=== PATIENT | female | born 1940 | race Caucasian/White ===

== ENCOUNTER → 2016-12-22 | Outpatient (CLI) | payer BC ==
[~2016-12-22] MED LIST: ALEN70TA30 PO; ASPI325T32 PO; DOCU-144 PO; HYDR-905 PO; HYDR50TA3 PO; LYRI25 PO; PANT40TA4 PO; TRAM50TA2 PO
== END | disposition home or self-care (01) ==
LOC: HKI 10:07
PROVIDERS: ATTEND Orthopaedic Surgery
DX: M17.12 Unilateral primary osteoarthritis, left knee (principal); Z47.1 Aftercare following joint replacement surgery; Z96.651 Presence of right artificial knee joint
CPT/HCPCS: G0463

== ENCOUNTER 2017-02-09 12:44 | Day surgery (SDC) | payer BC ==
[~2017-02-09] VITALS: Ht 144.8 cm; Wt 70.5 kg
[2017-02-09 14:48] VITALS: Ht 144.8 cm; Wt 70.5 kg
[2017-02-09 15:18] VITALS: BP 159/84; PULSE 69; RESP 20
[2017-02-09] MEDS ORDERED: CEFAZOLIN 1 GM/50 ML (PMX) 50 ML IVPB ONE (15:44)
[2017-02-09] MEDS ORDERED: LIDOCAINE 4% SOLUTION 50 ML BTL ONE (15:54)
[2017-02-09] MEDS ORDERED: MIDAZOLAM 1 MG/ML 2 ML INJ ONE (16:32)
[2017-02-09] MEDS ORDERED: FENTAnyl 50 MCG/ML VIAL ONE (16:32)
[2017-02-09 16:40] VITALS: BP 134/60; PULSE 58; RESP 16
--- NOTE | 2017-02-09 16:49 | GILP ---
DATE OF PROCEDURE: 02/09/2017 PREOPERATIVE DIAGNOSIS: Dysphagia, reflux symptoms, abdominal pain. PROCEDURE DONE: Esophagogastroduodenoscopy and biopsy random of the stomach and GE junctional nodul ar area at 39 cm. POSTOPERATIVE DIAGNOSIS: 1. Nodularity at the gastroesophageal junction. 2. Dilated esophagus. 3. Small hiatus hernia. 4. Mild gastritis. DESCRIPTION OF PROCEDURE: The patient was put in left lateral decubitus after obtaining informed co nsent. Posterior pharynx anesthetized with 4% Xylocaine gargle and Ancef 1 gram was given IV becaus e of her knee replacement. I gave her 1.5 mg IV Versed and 25 mcg of fentanyl. Then I advanced an Olympus video upper endoscop e in the esophagus, stomach and duodenum. Esophagus is dilated with some fluid. This was suctioned off and no peristalsis is noted. At the GE junction there was nodularity. This was photographed a nd later biopsied. Small sliding hiatus hernia was noted in the stomach, gastritis noted in the ant rum, so random biopsy done for H. pylori. Duodenal bulb and first and second part normal. Scope wa s withdrawn after biopsies. The patient had no complication. PLAN: Will be to continue PPI. Await for biopsy report, follow up as outpatient. If pain continue s, consider CT scan of the abdomen. Dictated By: CHELA MANZO Conf#: [id number] DID#: [id number]
== END 2017-02-09 16:50 | disposition home or self-care (01) ==
LOC: GIL 12:44
PROVIDERS: ATTEND Internal Medicine
DX: K29.30 Chronic superficial gastritis without bleeding (principal); K22.70 Barrett's esophagus without dysplasia; K44.9 Diaphragmatic hernia without obstruction or gangrene
CPT/HCPCS: 43239; 88305; 88312; 88313; J0690; J2250; J3010; Z7610

== ENCOUNTER 2017-02-19 13:13 | Inpatient (IN) | payer BC ==
[~2017-02-19] VITALS: Ht 144.8 cm; Wt 70.6 kg
[2017-03-01] VITALS (22 sets, daily range): BP systolic 114–150; BP diastolic 59–76; PULSE 62–81; RESP 11–20; Ht 144.8 cm; Wt 70.6 kg
[2017-03-01] MEDS ORDERED: CEFAZOLIN 2GM/50 ML (PMX) 50 ML X1 BEFORE INCISION IVPB ONE (08:00)
[2017-03-01] MEDS ORDERED: TRANEXAMIC ACID 770 MG in SOD CHLORIDE 0.9% 100 ML IVPB ONE (08:00)
[2017-03-01] MEDS ORDERED: TRANEXAMIC ACID 770 MG in SOD CHLORIDE 0.9% 92.3 ML IV ONE (08:00)
[2017-03-01] MEDS ORDERED: traMADOL 50 MG TAB X 1 DOSE PO ONE (08:00)
[2017-03-01] MEDS ORDERED: LACTATED RINGER'S 1,000 ML IV SCH (08:00)
[2017-03-01] MEDS ORDERED: oxyCODONE (CR) 10 MG TAB [oxyCONTIN] X1 DOSE PO ONE (08:00)
[2017-03-01] MEDS ORDERED: CELECOXIB 400 MG PO X1 DOSE PO ONE (08:00)
[2017-03-01] MEDS ORDERED: PREGABALIN 300 MG PO X1 PO ONE (08:00)
[2017-03-01] MEDS ORDERED: PAIN COCKTAIL-CEFUROXIME IRR ONE ×7 (08:00)
[2017-03-01] MEDS ORDERED: BUPIVACAINE LIPOSOME/PF 266 MG/20 ML VIAL INFIL ONE (08:00)
[2017-03-01] MEDS ORDERED: CIPR500T4 PO (08:46)
--- NOTE | 2017-03-01 09:54 | HPN ---
Date/Time of Note Date/Time of Note DATE: 03/01/17 TIME: 09:53 Interval H&P Admission Note Pt. seen H&P reviewed: No system changes No change from H&P on 02/21/17 by PAL David MD Mar 01, 2017 09:54
[2017-03-01] MEDS ORDERED: POLYMYXIN B 500000 UNIT INJ ONE (10:04)
[2017-03-01] MEDS ORDERED: VANCOMYCIN 1 GM INJ ONE (10:04)
[2017-03-01] MEDS ORDERED: FENTAnyl 50 MCG/ML VIAL ONE (10:20)
[2017-03-01] MEDS ORDERED: LIDOCAINE 2% (SDV) 5 ML INJ ONE (10:20)
[2017-03-01] MEDS ORDERED: PROPOFOL 100 ML ONE (10:20)
[2017-03-01] MEDS ORDERED: BACITRACIN 50000 UNITS INJ ONE (11:18)
[2017-03-01] MEDS ORDERED: METOCLOPRAMIDE 10 MG INJ ONE (11:49)
[2017-03-01] MEDS ORDERED: DEXAMETHASONE 4 MG/ML 1 ML INJ ONE (11:49)
[2017-03-01] MEDS ORDERED: ONDANSETRON 4 MG INJ ONE (11:49)
[2017-03-01] MEDS ORDERED: ROCURONIUM 50 MG INJ ONE (11:49)
[2017-03-01] MEDS ORDERED: SUCCINYLCHOLINE CHLORIDE 100 MG/5 ML SYG IV ONE (11:49)
[2017-03-01] MEDS ORDERED: FAMOTIDINE 20 MG INJ ONE (11:50)
[2017-03-01] MEDS ORDERED: CEFAZOLIN 1 GM INJ ONE ×2 (11:54)
[2017-03-01] MEDS ORDERED: EPHEDrine SULFATE 50 MG/5 ML SYG ONE ×2 (11:54→12:48)
[2017-03-01] MEDS: traMADol 50 MG TAB PO SCH ×2 (12:00→17:41)
[2017-03-01] MEDS ORDERED: DIPHENHYDRAMINE 50 MG INJ IV PRN (12:30)
[2017-03-01] MEDS ORDERED: LABETALOL HCL 20MG INJ IV PRN (12:30)
[2017-03-01] MEDS ORDERED: ONDANSETRON 4 MG INJ IV PRN ×2 (12:30→13:30)
[2017-03-01] MEDS ORDERED: hydrALAzine 20 MG INJ IV PRN (12:30)
[2017-03-01] MEDS ORDERED: HYDROmorphONE (0.2 MG/ML) 10ML SYG IV PRN (12:30)
[2017-03-01] MEDS ORDERED: FENTAnyl 50 MCG/ML VIAL IV PRN (12:30)
[2017-03-01] MEDS ORDERED: NEOSTIGMINE 3 MG/3 ML SYRINGE ONE (12:46)
[2017-03-01] MEDS ORDERED: GLYCOPYRROLATE 0.4 MG INJ ONE (12:46)
[2017-03-01] MEDS: LACTATED RINGER'S 1,000 ML IV SCH ×2 (13:26→20:20)
[2017-03-01] MEDS ORDERED: MAGNESIUM HYDROXIDE 30ML CUP PO PRN (13:30)
[2017-03-01] MEDS ORDERED: NA PHOSPHATE/BIPHOS 133 ML ENEMA PR PRN (13:30)
[2017-03-01] MEDS ORDERED: NACL 0.9% 3 ML SYG IV SCH (13:30)
[2017-03-01] MEDS ORDERED: ASPIRIN (EC) 325 MG TAB PO ONE (13:30)
[2017-03-01] MEDS ORDERED: BISACODYL 10 MG SUPP PR PRN (13:30)
[2017-03-01] MEDS ORDERED: HYDROmorphONE 1 MG/ML SYG IV PRN (13:30)
[2017-03-01] MEDS ORDERED: DIPHENHYDRAMINE 25 MG CAP PO PRN (13:30)
--- NOTE | 2017-03-01 13:31 | RADRPT ---
PROCEDURE: Left knee x-ray. CLINICAL INDICATION: Intraoperative localization for knee replacement procedure. TECHNIQUE: Two images were obtained intraoperatively during the intraoperative procedure. COMPARISON: None available FINDINGS: 2 images were obtained intraoperatively for localization during the procedure. The procedure was p erformed by Dr. Vasquez; 18 seconds of intraoperative fluoroscopy was used. Surgical hardware is seen in place. No fracture is identified. IMPRESSION: Intraoperative images and fluoroscopy used during the procedure Surgical hardware identified. RPTAT:HGDB .Ranjit Burt MD, Date Time Electronically viewed and signed by .Ranjit Burt MD, on 03/01/2017 13:31 .B/
--- NOTE | 2017-03-01 13:34 | OPR ---
Date/Time of Note Date/Time of Note DATE: 03/01/17 TIME: 13:32 Operative Report Free Text/Dictation [id number] Procedure Date: Mar 01, 2017 Preoperative Diagnosis Left Knee OA Postoperative Diagnosis Same Operation Performed Left TKA Surgeon: PAL WORTHINGTON MD assistant spa director: NELSON HDZ PA-C Anesthesia: general, spinal Anesthesiologist: MP SHEPHERD MD Tourniquet Time: 91 minutes Estimated Blood Loss: 10 - 50 ml's Specimens Bone and soft tissue Tubes/Drains Hemovac x 1 Complications: None Complications None Pt Condition Post Procedure: stable Disposition: PACU PAL WORTHINGTON MD Mar 01, 2017 13:33
--- NOTE | 2017-03-01 13:39 | PN ---
Date/Time of Note Date/Time of Note DATE: 03/01/17 TIME: 13:36 Assessment/Plan Assessment/Plan Assessment/Plan Stable in PACU, s/p left TKA -continue antibiotics -pain meds as needed -ASA/SCDs for DVT prophylaxis -OOB with PT -check AM labs -d/c [place] in AM -monitor drain XR of the left knee is pending at this time Subjective 24 Hr Interval Summary Stable in PACU. Moving surgical extremity. Drowsy from anesthesia. Denies pain. Exam/Review of Systems Vital Signs Vitals Vital Signs Date Time Temp Pulse Resp B/P Pulse Ox O2 Delivery O2 Flow Rate FiO2 03/01/17 13:34 98.3 Exam Free Text/Dictation Hemovac: minimal Dressing dry Incision clean, dry, and intact without redness or drainage Thigh soft 5/5 Quadriceps, Tibialis Anterior, EHL, Gastroc, Soleus, Peroneals Normal sensation Palpable DT/PT, CR <2 sec No distal edema NELSON HDZ PA-C Mar 01, 2017 13:38
[2017-03-01] MEDS ORDERED: EXPAREL NOTE (BUPIVICAINE LIPOSOMAL) XX SCH (14:00)
--- NOTE | 2017-03-01 14:05 | OPR ---
DATE OF OPERATION: 03/01/2017 PREOPERATIVE DIAGNOSIS: Left knee osteoarthritis. POSTOPERATIVE DIAGNOSIS: Left knee osteoarthritis. OPERATION PERFORMED: Left total knee arthroplasty. SURGEON: Pal Vasquez MD INTERPRETATIVE DANCER: BEN Thomson COMPONENTS USED: DePuy Attune size 4 narrow femoral component, size 3 tibial baseplate, 14 mm polyethylene insert, and a 32 patellar button. ANESTHESIA: Spinal plus general endotracheal intubation, plus periarticular injection. ANESTHESIOLOGIST: Gregoria Jain MD TOURNIQUET TIME: 91 minutes. ESTIMATED BLOOD LOSS: 50 mL. INTRAVENOUS FLUIDS: Two liters crystalloid. SPECIMENS: Bone and soft tissue. DRAINS: Hemovac x1. COMPLICATIONS: None. DISPOSITION: The patient tolerated the procedure well and was taken to the recovery room in stable condition. INDICATIONS: The patient is a 76-year-old woman who has had progressive worsening pain in the left knee with radiographic evidence of severe osteoarthritis. She has failed nonsurgical means of treatment to control her pain including activity modifications, pain medications and ambulatory assist devices. Despite these measures, she has had worsening pain and I felt she would benefit from a total knee arthroplasty. The risks, benefits, and alternatives of the procedure were explained in detail to the patient. I explained the risks of the surgery to include but not be limited to, bleeding and possible need for blood transfusion; infection; pain; stiffness; neurovascular injury with possible numbness, weakness, and/or paralysis anywhere from the knee down to the toes; fracture; instability; dislocation; wear and/or loosening of the prosthesis and possible need for future revision; blood clots; pulmonary embolism; and anesthetic complications such as heart attack, stroke, GI bleed, pneumonia, and/or . Ample time was allowed for the patient to ask questions, all of which were addressed and answered. The patient understood the risks involved and wished to proceed. Informed consent was signed prior to the procedure. PROCEDURE: The patient's left knee was initialed with a marking pen in the preoperative area to identify the correct operative site. The patient was brought to the operating room and transferred from the [facility] to the operating table where a spinal anesthetic was administered. The patient was then anesthetized and intubated. A Frazier catheter was placed. A timeout was performed to confirm that the left leg was the correct operative site. The patient was given 2 g of Ancef within one hour prior to the procedure. A tourniquet was placed on the operative proximal thigh. The operative knee and lower extremity were prepped and draped in the usual sterile fashion. The operative lower extremity was elevated and exsanguinated with an Esmarch tourniquet. The proximal thigh tourniquet was inflated to 300 mmHg. The knee was flexed. A midline incision was made and carried down through the subcutaneous tissue and fat with sharp dissection. Limited medial and lateral flaps were raised. A median parapatellar approach was performed. Synovial fluid was normal in color and consistency. The patella was everted and the knee flexed. There were severe tricompartmental osteoarthritic changes noted. A medial release was performed at the joint line to the midcoronal plane. The ACL and PCL and remnants of the menisci were excised. The OrthAlign navigation device was then pinned into place on the distal femur and set to 0 degrees of varus/valgus and 3 degrees of flexion. The distal cutting block was pinned into place and the oscillating saw was used to make the cut. The tibia was subluxed anteriorly. The tibial OrthAlign navigation device was then pinned into place such that the proximal portion of the guide was centered over the junction of the medial and middle third of the tibial tubercle with the proximal probe placed at the posterior aspect of the ACL footprint. The guide was then set to 0 degrees varus/valgus and 3 degrees of posterior slope. The cutting block was then pinned into place and the oscillating saw was used to make the cut. The tibia was sized. The extension gap was checked and accommodated a 14 mm spacer block with the knee in full extension. There was no varus or valgus instability. At this point, the femur was sized with the posterior referencing guide. Two holes were drilled in 3 degrees of external rotation. The two holes were in line with the transepicondylar axis, perpendicular to Nephi's line, and in line with the tibial cutoff jig brought up with the knee flexed 90 degrees and tensed with 2 lamina spreaders, suggesting the femoral rotation was correct. The four-in-one cutting block was pinned into place. The anterior and posterior cuts and chamfer cuts were made with the oscillating saw. The flexion gap was checked and accommodated the 14 mm spacer block at 90 degrees. There was no varus or valgus instability, suggesting the flexion and extension gaps were now equal. The central box was cut out on the femur. The tibia was drilled and punched in proper rotation. Trial components were placed into position with a trial insert. The patella was cut from 21 mm down to 13 mm and sized. Three holes were drilled and the trial button placed in position. With all the trials now in place, the knee was taken through range of motion and came to full extension as evidenced by the fact that with the foot on my abdomen and axial loading, there was no tendency for the knee to flex. The knee was able to be flexed to 125 degrees with good patellar tracking with no lateral tilt or subluxation. At this point, I was satisfied with the overall range of motion, stability, and patellar tracking. The trials were removed. The real components were opened. Two bags of cement were mixed, one with and one without premixed antibiotic. The knee was irrigated with antibiotic saline and sucked dry. Once the cement was in a doughy stage, the real components were cemented into place. The knee was held in full extension, and the patellar component was held with a patellar clamp. All excess cement was removed with curettes. As the cement was hardening, the synovial/capsular layer was infiltrated with a mixture of 150 mg of 0.5% bupivacaine, 8 mg of Duramorph, 300 mcg of epinephrine, 30 mg of Toradol, 100 mcg of clonidine, 750 mg of cefuroxime and 86 mL of normal saline, followed by an injection of 266 mg of liposomal bupivacaine. A Hemovac drain was placed in the deep portion of the wound and brought out the anterolateral thigh. Once the cement was completely hardened, the trial liner was removed, and the real insert was opened. The tourniquet was let down, and there was good hemostasis. The knee was then irrigated with a mixture of Betadine/saline and then antibiotic saline with pulsatile lavage. The real insert was impacted into the tibia and reduced onto to the femur. The arthrotomy was closed with a few interrupted #1 Ethibond in a figure-of- eight fashion, and then closed in a watertight fashion with a running #2 Stratafix suture. Knee flexion was checked against gravity and came to 125 degrees. The subcutaneous layer was irrigated and closed with 2-0 Stratafix, and then 3-0 Vicryl and then luis on the skin. The wound was covered with an occlusive dressing, and secured with cast padding and a bias dressing. The drain was secured with 3-0 nylon. The sponge and needle counts were correct at the end of the case. The patient was then awakened, extubated, and taken to the recovery room in stable condition. Dictated By: PAL WORKMAN/DINORAH Conf#: [id number] DID#: [id number] MTDD
[2017-03-01] MEDS: CEFAZOLIN 2 GM/50 ML (PMX) 50 ML IVPB SCH (14:20)
[2017-03-01] MEDS: ALENDRONATE 70 MG XX SCH ×2 (14:30→22:30)
[2017-03-01] MEDS: [UNRECOGNIZED DRUG - OTHER] XX SCH ×2 (14:30→22:30)
[2017-03-01 14:50] LABS: CALCIUM 8.1 mg/dl (8.4-10.2); CREATININE 0.87 mg/dl (0.44-1.00)
--- NOTE | 2017-03-01 14:54 | RADRPT ---
PROCEDURE: XR Knee. CLINICAL INDICATION: Status post knee replacement TECHNIQUE: AP and lateral view of the left knee were obtained. The images reviewed on a PACS work station. COMPARISON: September 06, 2016 FINDINGS: Complete left knee replacement is identified. Prosthetic components are in appropriate position and alignment. No fractures or destructive lesions are observed. Surgical drain is seen in the knee. Soft tissue air is procedural in nature. IMPRESSION: Status post left knee replacement. Prosthetic components are in appropriate position and alignment. RPTAT: AA .Jonnie Victor MD, MD Date Time Electronically viewed and signed by .Jonnie Victor MD, MD on 03/01/2017 14:54 .P/
[2017-03-01 14:59] LABS: POTASSIUM 2.9 mmol/L (3.5-5.1)
[2017-03-01 15:12] LABS: ADD UMIC YES; URINE BILIRUBIN (Dip) NEGATIVE (NEGATIVE); URINE BLOOD (Dip) TRACE (NEGATIVE); URINE COLOR LT. YELLOW (YELLOW); URINE GLUCOSE (Dip) NEGATIVE (NEGATIVE); URINE KETONES (Dip) NEGATIVE (NEGATIVE); URINE LEUKOCYTE ESTERASE (Dip) NEGATIVE (NEGATIVE); URINE NITRITE (Dip) NEGATIVE (NEGATIVE); URINE TOTAL PROTEIN (Dip) NEGATIVE (NEGATIVE); URINE UROBILINOGEN (Dip) 0.2 E.U./dL (0.1-1.0)
[2017-03-01 15:28] LABS: SQUAMOUS EPITHELIAL CELL,UR RARE; URINE RBCS 0-2 /HPF (0)
[2017-03-01] MEDS ORDERED: TRANEXAMIC ACID 710 MG in SOD CHLORIDE 0.9% 100 ML IVPB ONE ×2 (16:30→19:30)
[2017-03-01] MEDS ORDERED: POTASSIUM CHLORIDE 250 ML IVPB ONE (17:00)
[2017-03-01 17:02] LABS: HEMATOCRIT 35.2 % (37.0-47.0); HEMOGLOBIN 11.3 g/dl (12.0-16.0)
--- NOTE | 2017-03-01 17:29 | PDOCDIS ---
Discharge Instructions DIAGNOSIS Discharge Diagnosis: s/p left TKA CONDITION Patient Condition: Good HOME CARE INSTRUCTIONS: Diet Instructions: Regular ACTIVITY: Activity Restrictions: Slowly Increase Activity Rest between Activity Avoid heavy lifting Do not operate Machinery Do not operate Power Tool Avoid Heavy Housework Keep Limb Elevated FOLLOW UP/APPOINTMENTS Appointments follow up in the office on 03/12/17 OTHER ORDERS: Other Orders: S/P TKA Physical Therapy: Three times per week at home x 2 weeks Daily in Rehab/SNF WB STATUS: WBAT 1. Strengthening exercises for both upper and un-operated lower extremities. 2. Gait training with front wheeled walker 3. Active range of motion exercises to operative knee. 4. When not working on knee range of motion exercises, distal towel roll under operative ankle/distal calf to promote full extension. 5. DO NOT PUT ANYTHING BEHIND OPERATIVE KNEE!!! 6. Quadriceps and hamstring strengthening. 7. May switch to cane in contra lateral hand 6 weeks after surgery. 8. Physical Therapy can open case if nursing is not available. 9. Use Ice Machine as instructed from date of surgery while at rest 3X/day. 10. Patient requires mobile SCDs to reduce risk of developing DVT following TKA. Patient will use the mobile SCDs for 30 days postoperatively. Bathing assistance by home health aide twice weekly if Medicare patient. Occupational Therapy: Evaluation for assistive devices and ADL training. Wound Care: Keep incision dry & covered with Tegaderm until first visit with Dr. Vasquez Anticoagulation Orders: Enteric Coated Aspirin 325 mg po bid x 6 weeks from date of surgery Follow-up:Call for an appointment with Dr. Vasquez in 1 week after discharged from hospital at DME Orders: JONA, 3-in-1 Commode, Polar ice machine, Mobile SCDs NELSON HDZ PA-C Mar 01, 2017 17:29
[2017-03-01] MEDS ORDERED: HYDR-905 PO (17:31)
[2017-03-01] MEDS ORDERED: TRAM50TA2 PO (17:31)
[2017-03-01] MEDS ORDERED: GABA300C PO (17:31)
[2017-03-01] MEDS ORDERED: PANT40TA4 PO (17:31)
[2017-03-01] MEDS: PANTOPRAZOLE (EC) 40 MG TAB PO SCH (17:41)
--- NOTE | 2017-03-01 19:07 | CONS ---
DATE OF ADMISSION: 03/01/2017 DATE OF CONSULTATION: 03/01/2017 HISTORY OF PRESENT ILLNESS: A 76-year-old female was brought in because of left knee pain status post left total knee replacement earlier today. Again, this is a 76-year-old female, past history of right total knee replacement in the past, hypertension, severe osteoarthritis who was brought in for elective left total knee replacement secondary to arthritis. She had apparently been having progressive worsening of knee pain. The patient did have a right total knee replacement performed in 10/2016 at this facility as well. Presently, she is sleeping in a 4th floor med/surg room, so full review of systems could not be obtained at this time. PAST MEDICAL HISTORY: As stated above. ALLERGIES: NO KNOWN DRUG ALLERGIES. HOME MEDICINES: 1. Cipro 500 mg b.i.d. 2. Aspirin 325 mg b.i.d. 3. Hydrochlorothiazide 50 mg daily. 4. Fosamax 70 mg weekly. PAST SURGICAL HISTORY: Bowel resection surgery in the past, a right total knee replacement 10/2016 and again today's left total knee replacement as well. SOCIAL HISTORY: Negative for smoking, drinking, IV drug abuse. FAMILY HISTORY: Noncontributory. PHYSICAL EXAMINATION: VITAL SIGNS: Afebrile, pulse 68 to 76, respirations 12 to 20, blood pressure is 119/65, saturating at 96% on room air. GENERAL: The patient is lying in bed sleeping. Daughter is at the bedside. No acute distress. HEENT: Pupils equal, round, reactive to light. Extraocular muscles are intact. NECK: Supple. No thyromegaly. LUNGS: Clear to auscultation bilaterally. CARDIOVASCULAR: S1, S2 heard. No rubs, gallops. ABDOMEN: Soft, nontender, nondistended. Normal bowel sounds. No rebound, guarding. MUSCULOSKELETAL: Decreased range of motion, left lower extremity. NEUROLOGIC: No focal deficits. LABORATORIES: Hemoglobin today 11.3, hematocrit 35.2. Sodium 138, potassium 2.9, chloride 103, CO2 29, BUN of 19, creatinine 0.87, glucose of 138. ASSESSMENT AND PLAN: An 76-year-old female status post left total knee replacement secondary to arthritis, surgery occurred today. 1. Status post left total knee replacement. Continue pain control medications and physical therapy per orthopedic recommendations. 2. Low potassium. Replete. 3. Hypertension. Blood pressure stable. Continue current medications. 4. Gastrointestinal prophylaxis. She is on PPI. 5. Deep venous thrombosis prophylaxis. She is on aspirin, high dose. We will continue to follow along with you. Dictated By: OTONIEL DOYLE Conf#: [id number] DID#: [id number] MTDD
[2017-03-01] MEDS: PREGABALIN 50 MG CAP PO SCH (20:19)
[2017-03-01] MEDS: CIPROFLOXACIN 500 MG TAB PO SCH (20:19)
[2017-03-01] MEDS: DOCUSATE SODIUM 100 MG CAP PO SCH (20:19)
[2017-03-02] MEDS: CEFAZOLIN 2 GM/50 ML (PMX) 50 ML IVPB SCH ×2 (00:14→07:16)
[2017-03-02 00:19] VITALS: BP 126/57; PULSE 65; RESP 16
[2017-03-02] MEDS: LACTATED RINGER'S 1,000 ML IV SCH ×3 (05:14→21:26)
[2017-03-02] MEDS: ALENDRONATE 70 MG XX SCH (05:16)
[2017-03-02] MEDS: [UNRECOGNIZED DRUG - OTHER] XX SCH (05:16)
[2017-03-02] MEDS: PANTOPRAZOLE (EC) 40 MG TAB PO SCH ×2 (05:17→17:04)
[2017-03-02] MEDS: traMADol 50 MG TAB PO SCH ×5 (05:18→23:51)
[2017-03-02 05:50] LABS: HEMATOCRIT 32.7 % (37.0-47.0); HEMOGLOBIN 10.2 g/dl (12.0-16.0); POTASSIUM 3.7 mmol/L (3.5-5.1)
[2017-03-02 05:53] LABS: CREATININE 0.83 mg/dl (0.44-1.00)
[2017-03-02 08:11] VITALS: BP 121/57; RESP 18
--- NOTE | 2017-03-02 08:48 | PN ---
Date/Time of Note Date/Time of Note DATE: 03/02/17 TIME: 08:47 Assessment/Plan Lines/Catheters IV Catheter Type (from Nrsg): Peripheral IV Frazier in Place (from Nrsg): No Assessment/Plan Assessment/Plan Stable POD #1, s/p left TKA -d/c abx -pain meds as needed -ASA/SCDs -OOB with PT -drain removed -check AM labs -d/c planning. Will plan to go home upon discharge Subjective 24 Hr Interval Summary No acute overnight events. Denies significant pain. Did not start PT yesterday. VSS, afebrile. Will plan to go home upon discharge. Exam/Review of Systems Vital Signs Vitals Vital Signs Date Time Temp Pulse Resp B/P Pulse Ox O2 Delivery O2 Flow Rate FiO2 03/02/17 08:11 98.0 69 18 121/57 97 03/02/17 00:19 Nasal Cannula 1.0 Intake and Output 03/01/17 03/01/17 03/02/17 15:00 23:00 07:00 Intake Total 2500 ml 350 ml 1450 ml Output Total 415 ml 800 ml Balance 2085 ml 350 ml 650 ml Exam Free Text/Dictation Hemovac: 165cc Dressing dry Incision clean, dry, and intact without redness or drainage Thigh soft 5/5 Quadriceps, Tibialis Anterior, EHL, Gastroc, Soleus, Peroneals Normal sensation Palpable DT/PT, CR <2 sec No distal edema Results Result Diagram: 03/02/17 0415 03/02/17 0415 NELSON HDZ PA-C Mar 02, 2017 08:48
[2017-03-02] MEDS: ASPIRIN (EC) 325 MG TAB PO SCH ×2 (08:52→21:59)
[2017-03-02] MEDS: CIPROFLOXACIN 500 MG TAB PO SCH ×2 (08:52→21:59)
[2017-03-02] MEDS: DOCUSATE SODIUM 100 MG CAP PO SCH ×2 (08:52→21:59)
[2017-03-02] MEDS: PREGABALIN 50 MG CAP PO SCH ×2 (08:52→21:59)
[2017-03-02] MEDS: CELECOXIB 200 MG CAP PO SCH (08:52)
[2017-03-02] MEDS ORDERED: HYDROCHLOROTHIAZIDE 50 MG TAB PO SCH (09:00)
[2017-03-02 09:03] LABS: ADD UMIC YES; URINE BILIRUBIN (Dip) NEGATIVE (NEGATIVE); URINE BLOOD (Dip) TRACE (NEGATIVE); URINE COLOR LT. YELLOW (YELLOW); URINE GLUCOSE (Dip) NEGATIVE (NEGATIVE); URINE KETONES (Dip) NEGATIVE (NEGATIVE); URINE LEUKOCYTE ESTERASE (Dip) NEGATIVE (NEGATIVE); URINE NITRITE (Dip) NEGATIVE (NEGATIVE); URINE TOTAL PROTEIN (Dip) NEGATIVE (NEGATIVE); URINE UROBILINOGEN (Dip) 0.2 E.U./dL (0.1-1.0)
[2017-03-02 09:17] LABS: URINE RBCS 0-2 /HPF (0)
--- NOTE | 2017-03-02 09:55 | CONS ---
Date/Time of Note Date/Time of Note DATE: 03/02/17 TIME: 09:54 Consult Date/Type/Reason Admit Date/Time Mar 01, 2017 at 07:44 Initial Consult Date Subjective Worked with PT. Objective Vital Signs Date Time Temp Pulse Resp B/P Pulse Ox O2 Delivery O2 Flow Rate FiO2 03/02/17 08:11 98.0 69 18 121/57 97 03/02/17 00:19 Nasal Cannula 1.0 Intake and Output 03/01/17 03/01/17 03/02/17 15:00 23:00 07:00 Intake Total 2500 ml 350 ml 1450 ml Output Total 415 ml 800 ml Balance 2085 ml 350 ml 650 ml Exam GENERAL: The patient is lying in bed sleeping. Daughter is at the bedside. No acute distress. HEENT: Pupils equal, round, reactive to light. Extraocular muscles are intact. NECK: Supple. No thyromegaly. LUNGS: Clear to auscultation bilaterally. CARDIOVASCULAR: S1, S2 heard. No rubs, gallops. ABDOMEN: Soft, nontender, nondistended. Normal bowel sounds. No rebound, guarding. MUSCULOSKELETAL: some decreased range of motion, left lower extremity. NEUROLOGIC: No focal deficits. Results/Medications Result Diagram: 03/02/17 0415 03/02/17 0415 Results 24 hrs Laboratory Tests Test 03/01/17 13:45 03/01/17 14:26 03/02/17 04:15 Urine Color LT. YELLOW LT. YELLOW Urine Clarity CLEAR CLEAR Urine pH 5.0 5.5 Urine Specific [place] <=1.005 L >=1.030 H Urine Ketones NEGATIVE NEGATIVE Urine Nitrite NEGATIVE NEGATIVE Urine Bilirubin NEGATIVE NEGATIVE Urine Urobilinogen 0.2 E.U./dL 0.2 E.U./dL Urine Leukocyte Esterase NEGATIVE NEGATIVE Urine Microscopic RBC 0-2 0-2 Urine Microscopic WBC NONE SEEN NONE SEEN Urine Squamous Epithelial Cells RARE Urine Hemoglobin TRACE TRACE Urine Glucose NEGATIVE NEGATIVE Urine Total Protein NEGATIVE NEGATIVE Hemoglobin 11.3 L 10.2 L Hematocrit 35.2 L 32.7 L Sodium Level 138 141 Potassium Level 2.9 *L 3.7 Chloride Level 103 102 Carbon Dioxide Level 29 30 Anion Gap 9 13 Blood Urea Nitrogen 19 18 Creatinine 0.87 0.83 Glucose Level 138 115 Calcium Level 8.1 L 8.0 L Urine Epithelial Cells OCCASIONAL Medications Current Medications Alendronate Sodium (Fosamax) 70 mg Q7D PO ; Start 03/07/17 at 06:30 Ciprofloxacin (Cipro) 500 mg BID PO Last administered on 03/02/17 08:52; Admin Dose 500 MG; Start 03/01/17 at 21:00 Hydrochlorothiazide 50 mg 50 mg DAILY PO ; Start 03/02/17 at 09:00 Lactated Ringer's (Lr) 1,000 ml @ 125 mls/hr Q8H IV Last administered on 20:20; Admin Dose 125 MLS/HR; Start 03/01/17 at 13:26 Celecoxib (Celebrex) 200 mg DAILY PO Last administered on 03/02/17 08:52; Admin Dose 200 MG; Start 03/02/17 at 09:00 Tramadol HCl (Ultram) 50 mg Q6 PO Last administered on 03/02/17 05:18; Admin Dose 50 MG; Start 03/01/17 at 12:00; Stop 03/04/17 at 11:59 Oxycodone HCl (Roxicodone) 5 mg Q4H PRN PO PAIN LEVEL 1-3; Start 03/01/17 at 13 :30 Oxycodone HCl (Roxicodone) 10 mg Q4H PRN PO PAIN LEVEL 4-7; Start 03/01/17 at 13:30 Hydromorphone HCl (Dilaudid) 1 mg Q3H PRN IV PAIN LEVEL 8-10; Start 03/01/17 at 13:30 Ondansetron HCl (Zofran Inj) 4 mg Q6H PRN IV NAUSEA AND/OR VOMITING; Start at 13:30 Bisacodyl (Dulcolax Supp) 10 mg Q12H PRN DE CONSTIPATION; Start 03/01/17 at 13: 30 Magnesium Hydroxide (Milk Of Mag) 30 ml BID PRN PO CONSTIPATION; Start at 13:30 Sodium Biphosphate/ Sodium Phosphate (Fleet Enema) 133 ml DAILY PRN DE CONSTIPATION; Start 03/01/17 at 13:30 Docusate Sodium (Colace) 100 mg BID PO Last administered on 03/02/17 08:52; Admin Dose 100 MG; Start 03/01/17 at 21:00 Diphenhydramine HCl (Benadryl) 25 mg Q6H PRN PO PRURITUS; Start 03/01/17 at 13: 30 Aspirin (Ecotrin) 325 mg BID PO Last administered on 03/02/17 08:52; Admin Dose 325 MG; Start 03/02/17 at 09:00 Pantoprazole (Protonix Tab) 40 mg BID@06,18 PO Last administered on 03/02/17 05:17; Admin Dose 40 MG; Start 03/01/17 at 18:00 Pregabalin (Lyrica) 50 mg BID PO Last administered on 03/02/17 08:52; Admin Dose 50 MG; Start 03/01/17 at 21:00 Assessment/Plan Chief Complaint/Hosp Course ASSESSMENT AND PLAN: An 76-year-old female status post left total knee replacement secondary to arthritis POD # 1. 1. Status post left total knee replacement - POD # 1 - Continue pain control medications and physical therapy per orthopedic recommendations. 2. Low potassium. Repleted - monitor 3. Hypertension. Blood pressure stable. Continue current medications. 4. Gastrointestinal prophylaxis. She is on PPI. 5. Deep venous thrombosis prophylaxis. She is on aspirin, high dose. We will continue to follow along with you. Problems: OTONIEL MTZ Mar 02, 2017 09:55
[2017-03-02] MEDS: HYDROCHLOROTHIAZIDE 25 MG TAB PO SCH (11:26)
[2017-03-02] MEDS: oxyCODONE 5 MG TAB PO PRN (14:37)
[2017-03-02 20:15] VITALS: BP 98/59; RESP 20
[2017-03-03] MEDS: oxyCODONE 5 MG TAB PO PRN ×3 (02:57→14:10)
[2017-03-03] MEDS: LACTATED RINGER'S 1,000 ML IV SCH ×3 (05:26→21:26)
[2017-03-03 05:45] LABS: HEMATOCRIT 32.7 % (37.0-47.0); HEMOGLOBIN 10.2 g/dl (12.0-16.0)
[2017-03-03 06:18] LABS: CALCIUM 8.1 mg/dl (8.4-10.2); POTASSIUM 3.8 mmol/L (3.5-5.1)
[2017-03-03] MEDS: traMADol 50 MG TAB PO SCH ×4 (06:23→23:36)
[2017-03-03] MEDS: PANTOPRAZOLE (EC) 40 MG TAB PO SCH ×2 (06:23→18:00)
[2017-03-03 07:46] VITALS: BP 129/70; RESP 15
[2017-03-03] MEDS: ASPIRIN (EC) 325 MG TAB PO SCH ×2 (08:39→23:49)
[2017-03-03] MEDS: CIPROFLOXACIN 500 MG TAB PO SCH ×2 (08:39→23:49)
[2017-03-03] MEDS: CELECOXIB 200 MG CAP PO SCH (08:39)
[2017-03-03] MEDS: DOCUSATE SODIUM 100 MG CAP PO SCH ×2 (08:39→23:49)
[2017-03-03] MEDS: HYDROCHLOROTHIAZIDE 25 MG TAB PO SCH (08:40)
[2017-03-03] MEDS: PREGABALIN 50 MG CAP PO SCH ×2 (08:40→23:36)
--- NOTE | 2017-03-03 13:37 | PN ---
Date/Time of Note Date/Time of Note DATE: 03/03/17 TIME: 13:35 Assessment/Plan VTE Prophylaxis VTE Prophylaxis Intervention: other Lines/Catheters IV [facility]ter [facility]from [facility] Lock Urinary Cath still in place: No Assessment/Plan Problems: (1) Essential hypertension Status: Chronic Comment: Good control (2) Osteoarthritis of knee Status: Chronic Comment: Improved postop Qualifiers: Osteoarthritis type: primary Laterality: left Qualified Code: M17.12 - Primary osteoarthritis of left knee (3) Status post total left knee replacement Status: Acute Comment: Continue postoperative management. Possible discharge tomorrow Subjective 24 Hr Interval Summary Free Text/Dictation Charming older Occitan woman who is modestly sedated ENT: no complaints Respiratory: no complaints Cardiovascular: no complaints Gastrointestinal: no complaints Genitourinary: no complaints Exam/Review of Systems Vital Signs Vitals Vital Signs Date Time Temp Pulse Resp B/P Pulse Ox O2 Delivery O2 Flow Rate FiO2 03/03/17 07:46 97.4 75 15 129/70 99 03/02/17 00:19 Nasal Cannula 1.0 Intake and Output 03/02/17 03/02/17 03/03/17 15:00 23:00 07:00 Intake Total 700 ml 940 ml 960 ml Output Total 900 ml 1000 ml Balance 700 ml 40 ml -40 ml Exam Constitutional: alert, oriented Neck: non-tender, supple Respiratory: clear to auscultation, normal air movement Cardiovascular: nl pulses, regular rate and rhythm Results Result Diagram: 03/03/17 0445 03/03/17 0445 Results 24 hrs Laboratory Tests Test 03/03/17 04:45 Hemoglobin 10.2 L Hematocrit 32.7 L Sodium Level 137 Potassium Level 3.8 Chloride Level 100 Carbon Dioxide Level 33 H Anion Gap 8 Blood Urea Nitrogen 16 Creatinine 1.00 Glucose Level 94 Calcium Level 8.1 L Medications Medications Current Medications Alendronate Sodium (Fosamax) 70 mg Q7D PO ; Start 03/07/17 at 06:30 Ciprofloxacin 500 mg 500 mg BID PO Last administered on 03/03/17 08:39; Admin Dose 500 MG; Start 03/01/17 at 21:00 Lactated Ringer's (Lr) 1,000 ml @ 125 mls/hr Q8H IV Last administered on 20:20; Admin Dose 125 MLS/HR; Start 03/01/17 at 13:26 Celecoxib (Celebrex) 200 mg DAILY PO Last administered on 03/03/17 08:39; Admin Dose 200 MG; Start 03/02/17 at 09:00 Tramadol HCl (Ultram) 50 mg Q6 PO Last administered on 03/03/17 11:34; Admin Dose 50 MG; Start 03/01/17 at 12:00; Stop 03/04/17 at 11:59 Oxycodone HCl (Roxicodone) 5 mg Q4H PRN PO PAIN LEVEL 1-3 Last administered on 03/02/17 14:37; Admin Dose 5 MG; Start 03/01/17 at 13:30 Oxycodone HCl (Roxicodone) 10 mg Q4H PRN PO PAIN LEVEL 4-7 Last administered on 03/03/17 08:40; Admin Dose 10 MG; Start 03/01/17 at 13:30 Hydromorphone HCl (Dilaudid) 1 mg Q3H PRN IV PAIN LEVEL 8-10; Start 03/01/17 at 13:30 Ondansetron HCl (Zofran Inj) 4 mg Q6H PRN IV NAUSEA AND/OR VOMITING; Start at 13:30 Bisacodyl (Dulcolax Supp) 10 mg Q12H PRN [place] CONSTIPATION; Start 03/01/17 at 13: 30 Magnesium Hydroxide (Milk Of Mag) 30 ml BID PRN PO CONSTIPATION; Start at 13:30 Sodium Biphosphate/ Sodium Phosphate (Fleet Enema) 133 ml DAILY PRN [place] CONSTIPATION; Start 03/01/17 at 13:30 Docusate Sodium (Colace) 100 mg BID PO Last administered on 03/03/17 08:39; Admin Dose 100 MG; Start 03/01/17 at 21:00 Diphenhydramine HCl (Benadryl) 25 mg Q6H PRN PO PRURITUS; Start 03/01/17 at 13: 30 Aspirin (Ecotrin) 325 mg BID PO Last administered on 03/03/17 08:39; Admin Dose 325 MG; Start 03/02/17 at 09:00 Pantoprazole (Protonix Tab) 40 mg BID@,18 PO Last administered on 03/03/17 06:23; Admin Dose 40 MG; Start 03/01/17 at 18:00 Pregabalin (Lyrica) 50 mg BID PO Last administered on 03/03/17 08:40; Admin Dose 50 MG; Start 03/01/17 at 21:00 Hydrochlorothiazide (Hydrochlorothiazide) 50 mg DAILY PO Last administered on 08:40; Admin Dose 50 MG; Start 03/02/17 at 10:00 AMELIA APPIAH MD Mar 03, 2017 13:37
--- NOTE | 2017-03-03 16:40 | SP ---
DATE OF PROCEDURE: 03/03/2017 Postoperative day #2. The patient is making excellent progress. The wound is clean and healing wel l. She has minimal pain. Hemoglobin is 10.2. Temperature 97.4. The patient's daughter translates for her. Dressings were changed. The patient will be discharged home tomorrow. Dictated By: CAITLYN MODI/DINORAH Conf#: [id number] DID#: [id number]
[2017-03-03 20:11] VITALS: BP 111/52; RESP 18
[2017-03-03 23:30] VITALS: BP 121/65; PULSE 81; RESP 14
[2017-03-03] MEDS ORDERED: NALOXONE (0.4 MG/ML) INJ IV PRN ×2 (23:30→23:40)
[2017-03-04 00:30] VITALS: BP 120/54; PULSE 62; RESP 19
[2017-03-04] MEDS: LACTATED RINGER'S 1,000 ML IV SCH (04:05)
[2017-03-04] MEDS: PANTOPRAZOLE (EC) 40 MG TAB PO SCH (04:05)
[2017-03-04] MEDS: traMADol 50 MG TAB PO SCH (06:00)
[2017-03-04 06:22] LABS: HEMATOCRIT 32.9 % (37.0-47.0); HEMOGLOBIN 10.2 g/dl (12.0-16.0)
[2017-03-04 07:21] LABS: CALCIUM 7.8 mg/dl (8.4-10.2); CREATININE 0.96 mg/dl (0.44-1.00); POTASSIUM 3.6 mmol/L (3.5-5.1)
[2017-03-04 08:21] VITALS: BP 107/60; RESP 16
[2017-03-04] MEDS: HYDROCHLOROTHIAZIDE 25 MG TAB PO SCH (09:00)
[2017-03-04] MEDS: DOCUSATE SODIUM 100 MG CAP PO SCH (09:00)
[2017-03-04] MEDS: CIPROFLOXACIN 500 MG TAB PO SCH (09:00)
[2017-03-04] MEDS: ASPIRIN (EC) 325 MG TAB PO SCH (09:00)
[2017-03-04] MEDS: PREGABALIN 50 MG CAP PO SCH (09:00)
[2017-03-04] MEDS: CELECOXIB 200 MG CAP PO SCH (09:00)
--- NOTE | 2017-03-04 11:46 | CONS ---
Date/Time of Note Date/Time of Note DATE: 03/04/17 TIME: 11:44 Assessment/Plan Assessment/Plan Problems: (1) Status post total left knee replacement Status: Acute Comment: Doing well now stable for discharge home. Will be discharged without higher grade narcotics will be on tramadol alone. (2) Essential hypertension Status: Chronic Comment: Adequate control. Consultation Date/Type/Reason Admit Date/Time Mar 01, 2017 at 07:44 Initial Consult Date 03/01/2017 Type of Consultation: Internal medicine Reason for Consultation Assist with management postop Referring Provider: PAL WORTHINGTON MD 24 HR Interval Summary Free Text/Dictation Patient had episode last night of being somewhat over narcotized. Will be able to reduce pain medications. Constitutional: no complaints Detailed Summary Respiratory: no complaints Cardiovascular: no complaints Exam/Review of Systems Vital Signs Vitals Vital Signs Date Time Temp Pulse Resp B/P Pulse Ox O2 Delivery O2 Flow Rate FiO2 03/04/17 08:21 97.8 79 16 107/60 96 03/04/17 00:30 Nasal Cannula 2.0 Intake and Output 03/03/17 03/03/17 03/04/17 15:00 23:00 07:00 Intake Total 800 ml 720 ml Output Total 600 ml 600 ml Balance 200 ml 120 ml Exam Constitutional: alert, oriented Neck: non-tender, supple Respiratory: clear to auscultation, normal air movement Cardiovascular: nl pulses, regular rate and rhythm Results Result Diagram: 03/04/17 0444 03/04/17 0444 Results 24 hrs Laboratory Tests Test 03/04/17 04:44 Hemoglobin 10.2 L Hematocrit 32.9 L Sodium Level 135 Potassium Level 3.6 Chloride Level 98 Carbon Dioxide Level 33 H Anion Gap 8 Blood Urea Nitrogen 18 Creatinine 0.96 Glucose Level 110 Calcium Level 7.8 L Medications Medications Current Medications Alendronate Sodium (Fosamax) 70 mg Q7D PO ; Start 03/07/17 at 06:30 Ciprofloxacin 500 mg 500 mg BID PO Last administered on 03/04/17 09:00; Admin Dose 500 MG; Start 03/01/17 at 21:00 Lactated Ringer's (Lr) 1,000 ml @ 125 mls/hr Q8H IV Last administered on 20:20; Admin Dose 125 MLS/HR; Start 03/01/17 at 13:26 Celecoxib (Celebrex) 200 mg DAILY PO Last administered on 03/04/17 09:00; Admin Dose 200 MG; Start 03/02/17 at 09:00 Tramadol HCl (Ultram) 50 mg Q6 PO Last administered on 03/03/17 18:01; Admin Dose 50 MG; Start 03/01/17 at 12:00 Oxycodone HCl (Roxicodone) 5 mg Q4H PRN PO PAIN LEVEL 1-3 Last administered on 03/03/17 14:10; Admin Dose 5 MG; Start 03/01/17 at 13:30 Oxycodone HCl (Roxicodone) 10 mg Q4H PRN PO PAIN LEVEL 4-7 Last administered on 03/03/17 08:40; Admin Dose 10 MG; Start 03/01/17 at 13:30 Hydromorphone HCl (Dilaudid) 1 mg Q3H PRN IV PAIN LEVEL 8-10; Start 03/01/17 at 13:30 Ondansetron HCl (Zofran Inj) 4 mg Q6H PRN IV NAUSEA AND/OR VOMITING; Start at 13:30 Bisacodyl (Dulcolax Supp) 10 mg Q12H PRN [place] CONSTIPATION; Start 03/01/17 at 13: 30 Magnesium Hydroxide (Milk Of Mag) 30 ml BID PRN PO CONSTIPATION; Start at 13:30 Sodium Biphosphate/ Sodium Phosphate (Fleet Enema) 133 ml DAILY PRN [place] CONSTIPATION; Start 03/01/17 at 13:30 Docusate Sodium (Colace) 100 mg BID PO Last administered on 03/04/17 09:00; Admin Dose 100 MG; Start 03/01/17 at 21:00 Diphenhydramine HCl (Benadryl) 25 mg Q6H PRN PO PRURITUS; Start 03/01/17 at 13: 30 Aspirin (Ecotrin) 325 mg BID PO Last administered on 03/04/17 09:00; Admin Dose 325 MG; Start 03/02/17 at 09:00 Pantoprazole (Protonix Tab) 40 mg BID@,18 PO Last administered on 03/04/17 04:05; Admin Dose 40 MG; Start 03/01/17 at 18:00 Pregabalin (Lyrica) 50 mg BID PO Last administered on 03/04/17 09:00; Admin Dose 50 MG; Start 03/01/17 at 21:00 Hydrochlorothiazide (Hydrochlorothiazide) 50 mg DAILY PO Last administered on 08:40; Admin Dose 50 MG; Start 03/02/17 at 10:00 Naloxone HCl (Narcan) 0.4 mg Q2M PRN IV DECREASED REPIRATORY RATE Last administered on 03/03/17 23:45; Admin Dose 0.4 MG; Start 03/03/17 at 23:40 AMELIA APPIAH MD Mar 04, 2017 11:46
--- NOTE | 2017-03-04 16:38 | DS ---
DATE OF ADMISSION: 03/01/2017 DATE OF DISCHARGE: 03/04/2017 CONDITION ON DISCHARGE: Stable. ADMITTING DIAGNOSIS: Left knee osteoarthritis. DISCHARGE DIAGNOSIS: Status post left total knee arthroplasty. PROCEDURE PERFORMED: Left total knee arthroplasty. HOSPITAL COURSE: This is a 76-year-old female who had previously undergone a right TKA, who presented to the office complaining of left knee pain. Radiographs demonstrated advanced osteoarthritis of the left knee and it was thought she would benefit from a left total knee arthroplasty. On 03/01/2017 the patient was admitted and taken to the operating room where she underwent a left total knee arthroplasty. There were no intraoperative complications. The patient tolerated the procedure well. She was taken to the recovery room in stable condition. Pain was well controlled with oral pain medication. She was started on aspirin and SCDs for DVT prophylaxis. She remained hemodynamically stable and neurovascularly intact throughout her hospital stay. She made good progress with physical therapy and was deemed stable for discharge on postoperative day 3. Prior to discharge, the incision was inspected and noted to be clean, dry and intact. Dressing changes were done prior to the patient going home. LABORATORY ANALYSIS: Hemoglobin of 10.2, hematocrit 32.9. Chemistry panel was within normal limits. DISCHARGE MEDICATIONS: 1. [place] 7.5/325 mg. 2. Aspirin 325 mg. 3. Tramadol 50 mg. 4. Protonix 40 mg. 5. Neurontin 300 mg. 6. Additionally, the patient is to resume all her normal home medications. DISCHARGE INSTRUCTIONS: The patient will be discharged home in stable condition. She is to resume her normal diet. Activity includes weightbearing as tolerated on the left lower extremity. She will begin physical therapy with home health. She will be discharged home with the medications noted above and was to resume all of her normal home medications. The patient is to call the office or go to the emergency room for any concerns including increased redness , swelling, drainage or fever or any concerns regarding the operation or site of incision. FOLLOWUP: The patient is to follow up in the office on 03/12/2017. Dictated By: NELSON ANTUNEZ/DINORAH Conf#: [id number] DID#: [id number] MTDD
[2017-03-07] MEDS ORDERED: ALENDRONATE 70 MG TAB PO SCH (06:30)
== END 2017-03-04 11:30 | disposition home health service (06) | DRG 470 ==
LOC: REC 03-01 07:44 → MS1 03-01 15:15
PROVIDERS: ADMIT Orthopaedic Surgery; ATTEND Orthopaedic Surgery
PROC: 0SRD0J9 Replacement of Left Knee Joint with Synthetic Substitute, Cemented, Open Approach (ICD-10-PCS; principal; 2017-03-01 10:00)
DX: M17.12 Unilateral primary osteoarthritis, left knee (principal); I10 Essential (primary) hypertension; E87.6 Hypokalemia
CPT/HCPCS: 73560; 80048; 81001; 81003; 85014; 85018; 86850; 86900; 86901; 86920; 87081; 87086; 88304; 88311; 97110; 97116; 97162; 97530; C1776; C9290; J0171; J0330; J0690; J0697; J0735; J1100; J1885; J2274; J2310; J2405; J2710; J2765; J3010; J3370; J3480; J7120

== ENCOUNTER → 2017-02-19 | Outpatient (CLI) | payer BC ==
[~2017-02-19] MED LIST changes: -DOCU-144 PO; -LYRI25 PO; -PANT40TA4 PO; -TRAM50TA2 PO
--- NOTE | 2017-02-19 14:40 | RADRPT ---
PROCEDURE: Limited x-ray of both lower extremities. CLINICAL INDICATION: Bilateral leg pain. TECHNIQUE: Single frontal view of both lower extremities was obtained from the hips to the calves. COMPARISON: 10/09/2016. FINDINGS: The hips are not well visualized due to overlying soft tissues. There is a right knee total arthrop lasty. There are moderate to severe degenerative changes of the left knee. IMPRESSION: 1. Right knee total arthroplasty. 2. Moderate to severe degenerative changes of the left knee. RPTAT: QQ .Oswaldo Tavera MD, MD Date Time Electronically viewed and signed by .Oswaldo Tavera MD, on 02/19/2017 14:40 .R/
== END | disposition home or self-care (01) ==
LOC: HKI 10:37
PROVIDERS: ATTEND Orthopaedic Surgery
DX: M25.562 Pain in left knee (principal); Z96.651 Presence of right artificial knee joint; M17.12 Unilateral primary osteoarthritis, left knee
CPT/HCPCS: 77073; Z7500; G0463

== ENCOUNTER → 2017-03-12 | Outpatient (CLI) | payer BC ==
[~2017-03-12] MED LIST changes: +CIPR500T4 PO; +GABA300C PO; +PANT40TA4 PO; +TRAM50TA2 PO
--- NOTE | 2017-03-12 13:20 | RADRPT ---
PROCEDURE: XR Left Knee. CLINICAL INDICATION: Left knee pain. Postop. TECHNIQUE: Two views. Frontal and lateral. COMPARISON: 09/06/2016. FINDINGS: There is no fracture or dislocation. The soft tissues are normal. There is a total left knee arthroplasty which appears satisfactory. There is no lytic or blastic lesion. There is no joint effusion. IMPRESSION: 1. Satisfactory postoperative appearance of the left knee. RPTAT: QQ .Oswaldo Tavera MD, MD Date Time Electronically viewed and signed by .Oswaldo Tavera MD, on 03/12/2017 13:20 .R/
--- NOTE | 2017-03-13 01:35 | HKNOTE ---
DATE OF SERVICE: 03/12/2017 INTERVAL HISTORY: The patient presents today for her first postoperative evaluation on her left nadya forte. She is 10 days status post left total knee arthroplasty. She is doing satisfactory overall, but is having some pain to her left knee that is more prominent than her right side, which she had done previously. She has not been taking her pain medicine, however, as prescribed. The tramadol does not adequately controlled her pain and the [place] 7.5/325 makes her too drowsy. Therefore, she has n ot been taking her pain medication. She has been icing knee. She has also been taking aspirin twic e daily for DVT prophylaxis. Home health PT has evaluated her, but she has not begun formal PT at t his point yet. She presents today for her first postoperative evaluation. PHYSICAL EXAMINATION: GENERAL: Today, she is alert and oriented x4 and in no acute distress. Exam of the left knee demon strates luis to be in place. The incision is clean, dry, and intact. Range of motion is 0 to 90 degrees. She does have some mild soft tissue swelling and postoperative ecchymosis. There is no l eg swelling. Compartments are soft. Homans sign is negative. She is neurovascularly intact distal ly. IMAGING: X-rays of the left knee were obtained today and reviewed by me. They demonstrate good bridgette tomic alignment with no fractures or dislocations identified. ASSESSMENT: Ten days status post left total knee arthroplasty. PLAN: The luis were removed today and Steri-Strips were applied. She is to begin physical thera py with home health and transition to an outpatient physical therapy program as tolerated. She is t o continue aspirin twice a day for DVT prophylaxis. Given her difficulty with pain control and the pain medicine prescribed, we will prescribe her [place] 5/325 mg to take to better control her pain an d decrease her side effects from the stronger 7.5 mg tablets that she has been taking. She will santos l us and let us know how her pain is controlled. We will see her back in 4 weeks for repeat evaluat ion. Dictated By: NELSON CONTRERAS for PAL ANTUNEZ/DINORHA Conf#: [id number] DID#: [id number]
== END | disposition home or self-care (01) ==
LOC: HKI 09:35
PROVIDERS: ATTEND Orthopaedic Surgery
DX: Z47.1 Aftercare following joint replacement surgery (principal); Z96.652 Presence of left artificial knee joint

== ENCOUNTER → 2017-04-11 | Outpatient (CLI) | payer BC | END | disposition home or self-care (01) | LOC: HKI 10:50 | PROVIDERS: ATTEND Orthopaedic Surgery | DX: Z47.1 Aftercare following joint replacement surgery (principal); M17.12 Unilateral primary osteoarthritis, left knee; Z96.652 Presence of left artificial knee joint ==

== ENCOUNTER → 2017-06-11 | Outpatient (CLI) | payer BC ==
--- NOTE | 2017-06-11 13:52 | RADRPT ---
PROCEDURE: Left knee radiographs. CLINICAL INDICATION: Left knee pain. Postop. TECHNIQUE: Three views. Weight bearing. Frontal, lateral, and patellar view. COMPARISON: 03/12/2017. FINDINGS: There is no fracture or dislocation. The soft tissues are normal. There is a total left knee arthroplasty which appears satisfactory. There is no lytic or blastic lesion. There is no joint effusion. IMPRESSION: 1. Satisfactory postoperative appearance of the left knee. RPTAT: QQ .Oswaldo Tavera MD, Date Time Electronically viewed and signed by .Oswaldo Tavera MD, on 06/11/2017 13:52 .R/
== END | disposition home or self-care (01) ==
LOC: HKI 09:40
PROVIDERS: ATTEND Orthopaedic Surgery
DX: Z47.89 Encounter for other orthopedic aftercare (principal); Z96.653 Presence of artificial knee joint, bilateral
CPT/HCPCS: 73562; Z7500; G0463

== ENCOUNTER 2017-07-24 10:23 | Day surgery (SDC) | payer BC ==
[~2017-07-24] VITALS: Ht 149.9 cm; Wt 66.8 kg
[2017-07-24] VITALS (13 sets, daily range): BP systolic 103–158; BP diastolic 54–91; PULSE 18–76; RESP 16–24; Ht 149.9 cm; Wt 66.8 kg
[~2017-07-24 10:23] MED LIST changes: +LACTATED RINGER'S 1,000 ML IV SCH
[2017-07-24] MEDS ORDERED: HYDR50TA3 PO (11:06)
[2017-07-24] MEDS ORDERED: ALEN70TA30 PO (11:07)
[2017-07-24] MEDS ORDERED: ASPI-664 PO (11:07)
[2017-07-24 11:29] LABS: BASOPHILS % 0.3 % (0.0-2.0); EOSINOPHILS # 0.1 10^3/ul (0.0-0.5); EOSINOPHILS % 1.2 % (0.0-7.0); HEMATOCRIT 38.1 % (37.0-47.0); HEMOGLOBIN 12.5 g/dl (12.0-16.0); LYMPHOCYTES # 1.9 10^3/ul (0.8-2.9); LYMPHOCYTES % 27.2 % (15.0-51.0); MEAN CORPUSCULAR HGB CONC 32.8 g/dl (32.0-37.0); MEAN CORPUSCULAR VOLUME 91.4 fl (82.0-101.0); MEAN PLATELET VOLUME 11.7 fl (7.4-10.4); MONOCYTE # 0.6 10^3/ul (0.3-0.9); MONOCYTES % 8.5 % (0.0-11.0); NEUTROPHILS % 62.5 % (39.0-77.0); PLATELET COUNT 205 10^3/UL (140-415); RED BLOOD COUNT 4.17 10^6/ul (4.20-5.40); RED CELL DISTRIBUTION WIDTH 13.8 % (11.5-14.5); WHITE BLOOD COUNT 6.9 10^3/ul (4.8-10.8)
[2017-07-24 11:46] LABS: ALBUMIN 4.1 g/dl (3.3-4.9); ALBUMIN/GLOBULIN RATIO 1.17; BILIRUBIN,INDIRECT 0.5 mg/dl (0-1.1); BILIRUBIN,TOTAL 0.5 mg/dl (0.2-1.3); TOTAL PROTEIN 7.6 g/dl (6.1-8.1)
[2017-07-24 11:48] LABS: INR 0.95; PROTIME 12.7 Sec (12.2-14.2)
[2017-07-24 11:49] LABS: PARTIAL THROMBOPLASTIN TIME 28.5 Sec (25.0-35.0)
[2017-07-24 11:51] LABS: CALCIUM 9.4 mg/dl (8.4-10.2); CREATININE 0.99 mg/dl (0.44-1.00); POTASSIUM 3.7 mmol/L (3.5-5.1)
[2017-07-24] MEDS ORDERED: BUPIVACAINE 0.25% (MPF) 30 ML INJ ONE (12:23)
[2017-07-24] MEDS ORDERED: LIDOCAINE 2% (SDV) 5 ML INJ ONE (12:29)
[2017-07-24] MEDS ORDERED: GLYCOPYRROLATE 0.4 MG INJ ONE (12:29)
[2017-07-24] MEDS ORDERED: FENTAnyl 50 MCG/ML VIAL ONE (12:29)
[2017-07-24] MEDS ORDERED: PROPOFOL 20 ML ONE (12:29)
[2017-07-24] MEDS ORDERED: MIDAZOLAM 1 MG/ML 2 ML INJ ONE (12:29)
[2017-07-24] MEDS ORDERED: ROCURONIUM 50 MG INJ ONE (12:29)
[2017-07-24] MEDS ORDERED: NEOSTIGMINE 3 MG/3 ML SYRINGE ONE (12:29)
[2017-07-24] MEDS ORDERED: DEXAMETHASONE 4 MG/ML 1 ML INJ ONE (12:31)
[2017-07-24] MEDS ORDERED: ONDANSETRON 4 MG INJ ONE (12:31)
[2017-07-24] MEDS ORDERED: SUGAMMADEX SODIUM 200 MG/2 ML VIAL IV ONE (12:33)
[2017-07-24] MEDS ORDERED: MEPERIDINE 25 MG INJ IV PRN (13:30)
[2017-07-24] MEDS ORDERED: HYDROmorphONE (0.2 MG/ML) 10ML SYG IV PRN ×3 (13:30)
[2017-07-24] MEDS ORDERED: LABETALOL HCL 20MG INJ IV PRN (13:30)
[2017-07-24] MEDS ORDERED: EPHEDrine SULFATE 50 MG/5 ML SYG IV PRN (13:30)
[2017-07-24] MEDS ORDERED: OXYCODONE/ACETAMINOPHEN (5/325) TAB PO PRN ×2 (13:30)
[2017-07-24] MEDS ORDERED: morphine (1 MG/ML) 10ML SYRINGE IV PRN ×3 (13:30)
[2017-07-24] MEDS ORDERED: ATROPINE 1 MG/10 ML SYRINGE IV PRN (13:30)
[2017-07-24] MEDS ORDERED: MIDAZOLAM 1 MG/ML 2 ML INJ IV PRN (13:30)
[2017-07-24] MEDS ORDERED: FENTAnyl 50 MCG/ML VIAL IV PRN ×2 (13:30)
[2017-07-24] MEDS ORDERED: hydrALAzine 20 MG INJ IV PRN (13:30)
[2017-07-24] MEDS ORDERED: ONDANSETRON 4 MG INJ IV PRN (13:30)
[2017-07-24] MEDS ORDERED: DIPHENHYDRAMINE 50 MG INJ IV PRN (13:30)
[2017-07-24] MEDS ORDERED: BUPIVACAINE 0.5% (SDV) 30 ML INJ ONE ×2 (14:07→15:34)
--- NOTE | 2017-07-24 16:25 | SIPON ---
Date/Time of Note Date/Time of Note DATE: 07/24/17 TIME: 16:21 Operative Report Preoperative Diagnosis Symptomatic cholelithiasis, incisional hernia and Julianna-umbilical skin lesion Postoperative Diagnosis acute on chronic cholecystitis Incarcerated incisional hernia julianna-umbilical skin lesion Operation/Procedure Performed 1. Diagnostic Laparoscopy with extensive lysis of adhesions > 1 hour 2. Laparoscopic Cholecystectomy 3. Laparoscopic repair of incarcerated incisional hernia with Mesh, Ventralex oval shaped 10 x 15 cm 4. Excision of julianna-umbilical skin lesion Surgeon: MICHAEL WHALEY paralegal assistant: Melinda DELEON Anesthesia Type: general Estimated Blood Loss: minimal Transfusion Required: no Specimens gallbladder and julianna-umbilical skin lesion Grafts/Implants Ventralex Oval shaped mesh Complications: no MICHAEL WHALEY Jul 24, 2017 16:25
[2017-07-24] MEDS ORDERED: FLUMAZENIL 0.5 MG INJ ONE (16:30)
--- NOTE | 2017-07-31 08:25 | OPR ---
Date/Time of Note Date/Time of Note DATE: 07/31/17 TIME: 08:08 Operative Report Procedure Date: Jul 24, 2017 Preoperative Diagnosis 1. Symptomatic cholelithiasis 2. Incisional hernia 3. Yanely-umbilical Skin lesion Postoperative Diagnosis acute on chronic cholecystitis Incarcerated incisional hernia yanely-umbilical skin lesion Operation Performed 1. Diagnostic Laparoscopy with extensive lysis of adhesions > 1 hour 2. Laparoscopic Cholecystectomy 3. Laparoscopic repair of incarcerated incisional hernia with Mesh, Ventralex oval shaped 10 x 15 cm 4. Excision of yanely-umbilical skin lesion Surgeon All Whaley MD [facility] virtual assistant for advertisers: Melinda DELEON Anesthesia Type: general Estimated Blood Loss: minimal Transfusion Required: no Specimen: none Specimens Periumbilical skin, gallbladder Complications: no Pt Condition Post Procedure: stable Disposition: PACU Operative\\Procedure Findings Extensive adhesions throughout the abdomen, macedonian-cheese incisional hernias, acute on chronic cholecystitis Procedure Description Pt was brought to the operating room and placed supine on the operating period. After a time-out was performed, yanely-operative antibiotics were given, SCD's wrere already in place. Pt was next intubated and sedated by anesthesia. The abdomen was prepped and draped as per standard surgical fashion. Next, a given the fact pt had prior incisions, a left subcostal incision site was chosen after infiltration of Marcaine. Optiview access into the abdomen was obtained without any difficulty. The abdomen was insufflated to preset pressure as per routine. It was immediately evident that she had a lot of mid-abdominal adhesions. A second trocar was placed in the LLQ area. at this point using a combination of Harmonic Scalpel as well as blunt scissors, I performed a very slow and carefule extensive lysis of adhesions over 1 hour long. once this was done, the remaining trocars were placed as per routine. It was immediately evident that pt had a "macedonian-cheese" pattern midline incisional hernia. Next, the gallbladder dome was grasped, and raised superior and cephalad. The cystic duct and artery were both skeletonized until the critical view was obtained. They were both clipped and divided as per routine. There was evidence of acute on chronic cholecystitis. The gallbladder was from the liver without any problems and no bile spillage. The gallbladder was placed into an endoscopic catch bag and removed from the subxiphoid incision site without difficulty. The liver looked normal for her age. The abdomen was irrigated and washed out. The gallbladder was fatty in nature. All irrigations were taken out. The trocars were visualized as they were removed. There was no bleeding from any of the insertion sites. The skin incisions were infiltrated with Marcaine. Monocryl was used for closing. The abdomen was completely deflated at the end of the case. The patient tolerated the procedure well. There were no intraoperative complications. Sponge, needle and instrument counts were reported to be correct by nursing. The patient is currently extubated and will be transferred in stable condition to the recovery room. The periumbilical skin skin incision was next excised and passed off without any difficulty. At this point, we turned our attention to the hernia. The hernia was visualized and reduced using a combination of blunt dissection and Harmonic scalpel. The Hernia defect measured 4 x 5 cm. We next chose a Ventralex mesh measuring 10 x 15 cm with good underlay of 3-4 cm all around. Trans fascial sutures were placed at 12, 3, 6 and 9 O'clock positions using Ethibond suture. Next, the mesh was tacked to the abdominal wall with two rows of absorbable tacker. The incarcerated fat was removed from abdomen. No injury to the epigastric vessels was done. There was no bleeding. Nerves and vessels were protected. No sutures or luis were placed in the femoral vessels. Hemostasis was obtained. The 12mm trocar was closed with Vicryl suture transfascially. Gas was evacuated, trocars removed and the fascial defects closed. Sterile dressings were applied. At the end of the operation, all sponge , instruments, and needle counts were correct. Pt was awakened from anesthesia and taken to the recovery room in stable condition. ALL WHALEY Jul 31, 2017 08:24
== END 2017-07-24 18:22 | disposition home or self-care (01) ==
LOC: SDS 10:23
PROVIDERS: ATTEND Surgery Surgical Oncology
DX: K80.10 Calculus of gallbladder with chronic cholecystitis without obstruction (principal); K43.0 Incisional hernia with obstruction, without gangrene; L82.1 Other seborrheic keratosis; I25.10 Atherosclerotic heart disease of native coronary artery without angina pectoris; I10 Essential (primary) hypertension
CPT/HCPCS: 11401; 47562; 49655; 80053; 85025; 85610; 85730; 88304; 88305; C1781; J1100; J2175; J2250; J2405; J3010; Z7512; Z7610; 87081; J1170; J2710

== ENCOUNTER 2019-01-01 05:53 | Day surgery (SDC) | payer BC ==
[2019-01-01] VITALS (16 sets, daily range): BP systolic 97–185; BP diastolic 50–93; PULSE 62–108; RESP 11–21; Ht 144.8 cm; Wt 73.3 kg
[~2019-01-01] VITALS: Ht 144.8 cm; Wt 73.3 kg
[~2019-01-01 05:53] MED LIST changes: -ALEN70TA30 PO; +ALEN70TA5 PO; -ASPI325T32 PO; +ASPI81TA52 PO; -CIPR500T4 PO; -GABA300C PO; -HYDR-905 PO; -LACTATED RINGER'S 1,000 ML IV SCH; -PANT40TA4 PO; -TRAM50TA2 PO
[2019-01-01] MEDS ORDERED: POLYMYXIN/BACITRACIN 1L IRRIG ONE (06:41)
[2019-01-01] MEDS ORDERED: BUPIVACAINE 0.5% (SDV) 30 ML INJ ONE (06:41)
[2019-01-01] MEDS ORDERED: HYDR50TA3 PO (06:48)
[2019-01-01] MEDS ORDERED: ASPI81TA52 PO (06:49)
[2019-01-01] MEDS ORDERED: SEVOFLURANE 15 MIN ONE (07:00)
[2019-01-01] MEDS ORDERED: CEFAZOLIN 1 GM INJ ONE (07:00)
[2019-01-01] MEDS ORDERED: MIDAZOLAM 1 MG/ML 2 ML INJ ONE (07:30)
[2019-01-01] MEDS ORDERED: PROPOFOL 20 ML ONE (07:30)
[2019-01-01] MEDS ORDERED: FENTAnyl 50 MCG/ML VIAL ONE (07:30)
--- NOTE | 2019-01-01 07:43 | PREAC ---
Date/Time of Note Date/Time of Note DATE: 01/01/19 TIME: 07:39 Anesthesia Eval and Record Evaluation Time Pre-Procedure Interview DATE: 01/01/19 TIME: 07:39 Age 78 Sex female NPO: 8 hrs Preoperative diagnosis Bunion Left Foot Planned procedure Bunionectomy Left Foot Past Medical History Past Medical History: Includes Cardio: HTN Surgery & Anesthesia Issues No known issue Meds Anticoagulation: No Beta Subhash within 24 hr: Yes Reason Beta Subhash not given: Pt. not on B-Subhash Reported Medications Aspirin (Low Dose Aspirin) 81 Mg Tablet.dr, 81 MG PO DAILY, #30 TAB 01/01/19 Hydrochlorothiazide* (Hydrochlorothiazide*) 50 Mg Tab, 50 MG PO DAILY, #30 TAB 01/01/19 Discontinued Reported Medications Alendronate Sodium* (Fosamax*) 70 Mg Tablet, 70 MG PO EVERY SAT, #4 TAB 07/24/17 Aspirin (Low Dose Aspirin) 81 Mg Tablet.dr, 81 MG PO DAILY, #30 TAB 07/24/17 Hydrochlorothiazide* (Hydrochlorothiazide*) 50 Mg Tab, 50 MG PO DAILY, #30 TAB 07/24/17 Meds reviewed: Yes Allergies Coded Allergies: No Known Allergies (Verified Allergy, Unknown, 01/01/19) Allergies Reviewed: Yes Labs/Studies Labs Reviewed: Reviewed by anesthesiologist test: N/A Studies: ECG Pre-procedure Exam Last vitals Vital Signs Date Temp Pulse Resp B/P (MAP) Pulse Ox O2 O2 Flow FiO2 Time Delivery Rate 01/01/19 97.6 62 18 169/76 97 Room Air 06:30 (107) Airway: Adequate mouth opening, Adequate thyromental dist Mallampati: Mallampati I Teeth: Abnormal (upper and lower dentures, no own grown teeth) Lung: Normal Heart: Normal ASA Physical Status ASA physical status: 3 Emergency: None Planned Anesthetic General/MAC: LMA Nerve block: Other (by surgeon) Pre-operative Attestations Prior to commencing anesthesia and surgery, the patient was re-evaluated, there was verification of: *The patient's identity *The results of appropriate recent lab work and preoperative vital signs *The above evaluation not changing prior to induction *Anesthetic plan, risk benefits, alternative and complications discussed with patient/family; questions answered; patient/family understands, accepts and wishes to proceed. [employer] Sales Representative used (daugther translated from/into Far) Rosie Madison Jan 01, 2019 07:43
--- NOTE | 2019-01-01 07:48 | HPN ---
Date/Time of Note Date/Time of Note DATE: 01/01/19 TIME: 07:48 Interval H&P Admission Note Pt. seen H&P reviewed: No system changes MICHAEL JO DPM Jan 01, 2019 07:48
[2019-01-01] MEDS ORDERED: ALBUTEROL 0.083% (NEB) 2.5 MG/3 ML AMP HHN PRN (08:00)
[2019-01-01] MEDS ORDERED: ONDANSETRON 4 MG INJ IV PRN (08:00)
[2019-01-01] MEDS ORDERED: FENTAnyl 50 MCG/ML VIAL IV PRN (08:00)
[2019-01-01] MEDS ORDERED: DIPHENHYDRAMINE 50 MG INJ IV PRN (08:00)
[2019-01-01] MEDS ORDERED: MEPERIDINE 25 MG INJ IV PRN (08:00)
[2019-01-01] MEDS ORDERED: METOCLOPRAMIDE 10 MG INJ IV PRN (08:00)
[2019-01-01] MEDS ORDERED: morphine (1 MG/ML) 10ML SYRINGE IV PRN (08:00)
[2019-01-01] MEDS ORDERED: hydrALAzine 20 MG INJ IV PRN (08:00)
[2019-01-01] MEDS ORDERED: HYDROmorphONE 1 MG/5 ML IV SYRINGE IV PRN (08:00)
[2019-01-01] MEDS ORDERED: LABETALOL HCL 20MG INJ IV PRN (08:00)
[2019-01-01] MEDS ORDERED: KETOROLAC 15 MG INJ IV PRN (08:00)
[2019-01-01] MEDS ORDERED: PHENYLephrine 10 MG INJ ONE (08:03)
[2019-01-01] MEDS ORDERED: GLYCOPYRROLATE 0.4 MG INJ ONE (08:03)
[2019-01-01] MEDS ORDERED: ONDANSETRON 4 MG INJ ONE (08:56)
[2019-01-01] MEDS ORDERED: METOCLOPRAMIDE 10 MG INJ ONE (08:56)
--- NOTE | 2019-01-01 09:04 | OPR ---
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 Patient reports that she has tried many different types of shoes, NSAIDs and activity modification has not been able to get pain relief. She is seeking surgical management at this time. Recommendation was made for bunionectomy of the left foot. Risks and complications of this type of surgery was discussed with patient in great detail. Risks and complications discussed include, but are not limited to, postoperative infection, postoperative pain, chronic pain and disability, hardware failure, malunion, nonunion, delayed union, failure of surgery to correct the problem, need for additional surgical procedures, toenail changes, onychomycosis, deep venous thrombosis, gait distu rbance, problems with shoegear, limitation of activities, limb loss and loss of life. Patient understands the discussion and agrees to the procedure. An informed consent was obtained, signed and placed in the chart. No guarantee or warrantee was given or implied as to the outcome of the procedure either in verbal or written form. Procedure Description The patient was seen in the preoperative unit. The proposed surgery was discussed with patient in great detail. Risks and complications of this type of surgery was discussed with patient in great detail. Opportunity was given to patient to ask questions and all questions were answered. The patient acknowledges understanding of the discussion. An informed consent was then obtained, signed and placed in the chart. Patient was taken to the operating room and was placed on the operating table in the supine position. All bony prominences were padded properly. A timeout was called by the circulating nurse. Everyone in the operating room was agreeable to the timeout. The patient was then placed under general anesthesia by the anesthesiologist. An ankle tourniquet was applied to the left ankle. The left lower extremity was scrubbed,l prepped, and draped in the usual aseptic manner. An Esmarch bandage was utilized to exsanguinate the left foot and the tourniquet was inflated to 250 mmHg pressure. Procedure #1: Bunionectomy of the left foot Attention was directed to the left foot. A large bony prominence was present in the first MPJ of the left foot. A 6 cm linear incision was made medial and parallel to the extensor hallucis longus tendon using a sharp #10 blade. Bleeders were cauterized as necessary. Sharp and blunt dissection was made of the joint capsule with care being taken to identify and protect vital neurovascular structures. The first metatarsal phalangeal joint capsule was identified and a linear capsulotomy was done using a #15 blade. The joint capsule was then sharply dissected at the periosteal level exposing the first m etatarsal phalangeal joint. Large bony prominence was found of the dorsal and medial aspect of the first metatarsal head. A McGlamry elevator was inserted into the joints and adhesions were released. Next, a power saw was used to cut the medial bony prominence. A Chevron type osteotomy was made at the head of the first metatarsal bone. The capital fragment was translated laterally to the desired position and a 0.045 K wire was inserted for temporary fixation. I inserted a guidewire for a 3.0 cannulated and headless screw for fixation using lag technique. Next, the plate was inserted on the lateral aspect of the first metatarsal head and neck area. The remaining medial shelf of bone was cut using a power saw. All rough edges were smoothed using a power rasp. The deformity was corrected at this time. Excellent range of motion of the first metatarsal phalangeal joint was noted. Copious amounts of sterile normal saline was used to irrigate the wound. Next, the joint capsule was closed using 3-0 Vicryl suture; the subcutaneous layer was closed using 4-0 Vicryl and the skin was closed using 5-0 Monocryl in subcuticular stitch pattern. Steri-Strips were applied. Postoperative injection was given, 15 cc of 0.5% Marcaine plain. Sterile dressing was applied to the left foot. The Esmarch was deflated at this time and prompt hyperemic response was noted to the digits of the left foot. The patient tolerated the procedure and anesthesia well. She was transferred to the recovery room with vital signs stable and vascular status intact to the left foot. The patient will be discharged home after postoperative monitoring. Postoperative orders were written. Prescription for pain medication was electronically submitted to patient's pharmacy. Patient is to follow-up in the office in 1 week. Weightbearing status is partial weightbearing left foot with crutches and a postop shoe. MICHAEL JO DPM Jan 01, 2019 09:04
--- NOTE | 2019-01-01 10:01 | PAC ---
Date/Time of Note Date/Time of Note DATE: 01/01/19 TIME: 10:00 Post-Anesthesia Notes Post-Anesthesia Note Last documented vital signs Vital Signs Date Temp Pulse Resp B/P (MAP) Pulse Ox O2 O2 Flow FiO2 Time Delivery Rate 01/01/19 96 15 163/93 98 Room Air 09:23 (116) 01/01/19 98.1 09:14 01/01/19 10.0 09:14 Activity: WNL Respiratory function: WNL Cardiovascular function: WNL Mental status: Baseline Pain reasonably controlled: Yes Hydration appropriate: Yes Nausea/Vomiting absent: Yes Comments patient doing well, ready to be D/chandra to floor/home Rosie Madison Jan 01, 2019 10:01
== END 2019-01-01 11:08 | disposition home or self-care (01) ==
LOC: SDS 05:53
PROVIDERS: ATTEND Podiatrist Foot & Ankle Surgery
DX: M21.612 Bunion of left foot (principal); E66.01 Morbid (severe) obesity due to excess calories; Z68.35 Body mass index [BMI] 35.0-35.9, adult; I10 Essential (primary) hypertension
CPT/HCPCS: 28296; 73630; 88304; 88311; J0360; J0690; J1170; J1885; J2250; J2405; J2765; J3010; Z7512; Z7610